=== PATIENT | female | born 1980 | race Caucasian/White ===

== ENCOUNTER → 2019-05-16 | Day surgery (SDC) | payer BC ==
[~2019-05-16] MED LIST: Acetaminophen TAB* 325 MG PO PRN; Buffered Lidocaine 1% SYRIN* 1 ML/SYRINGE INTRADERM ONE; Dexamethasone IV* 4 MG/ML 1 ML (4 MG) IV SLOW PU ONE; Dexamethasone IV* 4 MG/ML 1 ML (4 MG) ONE; DiMENhydriNATE IV* 50 MG/ML VIAL IV PUSH PRN; Famotidine IV* 10 MG/ML 2 ML (20 mg) IV ONE; Famotidine IV* 10 MG/ML 2 ML (20 mg) ONE; HYDROcodone/ACETAMIN 5-325 MG* 1 TAB PO PRN; Ketorolac INJ* 30 MG/ML 1 ML VIAL ONE; Lactated Ringers 1000 ML Bag* 1,000 ML IV SCH; Lidocaine 2% PF * 5 ML VIAL ONE; Midazolam* 1 MG/ML 5 ML VIAL (5 MG) ONE; Naloxone* 0.4 MG/ML 1 ML VIAL IV PRN; Ondansetron INJ* 2 MG/ML VIAL ONE; Phenylephrine 40 MCG/ML SYRINGE ONE; Propofol* 10 MG/ML 20 ML BTL ONE; Succinylcholine* 20 MG/ML 10 ML VIAL ONE; fentaNYL* 50 MCG/ML 2 ML VIAL (100 MCG VIAL) IV PRN; fentaNYL* 50 MCG/ML 2 ML VIAL (100 MCG VIAL) ONE; oxyCODONE TAB* 5 MG TAB PO PRN
[2019-05-16 15:49] VITALS: BP 116/69
--- NOTE | 2019-05-16 16:15 | OP ---
CC: [facility] OPERATIVE REPORT: DATE OF OPERATION: 05/16/19 DATE OF : 84 SURGEON: Marianne Villa MD ANESTHESIOLOGIST: Dr. Stover. ANESTHESIA: General endotracheal anesthesia. PRE-OP DIAGNOSES: Irregular heavy vaginal bleeding x6 months, thickened endometrium on ultrasound. Body mass index 64. POST-OP DIAGNOSES: Irregular heavy vaginal bleeding x6 months, thickened endometrium on ultrasound. OPERATIVE PROCEDURE: Dilation, hysteroscopy, MyoSure polypectomy, curettage, and insert Mirena IUD. ESTIMATED BLOOD LOSS: Less than 20 cc. SPECIMENS: Endometrial curettings, polypoid material. FLUIDS: Per Anesthesia. DRAINS: None. FINDINGS: Cervix was posterior. There was a large amount of polypoid tissue at the fundus. No adnexal masses palpated. The exam is limited by habitus. The uterus sounds to 8. The Mirena that was placed has an expiration of May 2021 which means it has to be placed before that time and it is due to be removed in 5 years. The lot number is [id number]. COUNTS: Sponge, lap, and needle count were correct x2. CONDITION: The patient tolerated the procedure well and was brought to recovery room, awake and in stable condition. DESCRIPTION OF PROCEDURE: The patient was brought to the operating room. When general anesthesia was found to be adequate, after the patient was prepped and draped in the usual sterile fashion, time-out was performed. Exam under anesthesia was performed with the above findings noted. Cervix was visualized with the side opening speculum. Cervix was grasped with a single-tooth tenaculum. The cervix was gently and easily dilated to a size 8 Cayla dilator. The uterus sounded to 8. The MyoSure was introduced with the above findings noted. There was a polypoid material at the fundus. This was removed with the MyoSure light. The endometrium appeared somewhat fluffy throughout. No fibroids were seen. The MyoSure was removed. The cervix was reprepped with Betadine and the Mirena was inserted. The Mirena strings were cut to approximately 4 cm. The single tooth tenaculum was removed. Excellent hemostasis was noted. All instruments were removed from the vagina and the patient was brought to the recovery room, awake and in stable condition. [id number]/[facility] #: [id number] [facility]
== END | disposition home or self-care (01) ==
LOC: OR 09:54
PROVIDERS: ATTEND Obstetrics & Gynecology
PROC: 0UDB8ZX Extraction of Endometrium, Via Natural or Artificial Opening Endoscopic, Diagnostic (ICD-10-PCS; principal; 2019-05-16 12:00)
DX: C54.1 Malignant neoplasm of endometrium (principal); N92.1 Excessive and frequent menstruation with irregular cycle; F32.9 Major depressive disorder, single episode, unspecified; E66.01 Morbid (severe) obesity due to excess calories; Z68.44 Body mass index [BMI] 60.0-69.9, adult; Z97.5 Presence of (intrauterine) contraceptive device
CPT/HCPCS: 81025; 88305; 88341; 88342; J0330; J1100; J1885; J2250; J2405; J2704; J3010; J7300

== ENCOUNTER 2020-03-02 07:30 | Inpatient (IN) ==
[2020-03-27] MEDS ORDERED: Buffered Lidocaine 1% SYRIN 1 ml INTRADERM ONE (06:00)
[2020-03-27] MEDS ORDERED: Lactated Ringers 1000 ml BAG 1,000 ML IV SCH (06:00)
[2020-03-27] MEDS ORDERED: Dexamethasone IV 4 MG/ML VIAL 1 ml VIAL IV SLOW PU ONE (06:00)
[2020-03-27] MEDS ORDERED: ceFAZolin 1 GM ADVAN 1 GM ADDV.VIAL IVPB ONE (11:44)
[2020-03-27] MEDS ORDERED: Heparin 5000 UNITS/ML 1 mL VIAL ONE (11:44)
[2020-03-27] MEDS ORDERED: Dexamethasone IV 4 MG/ML VIAL 1 ml VIAL ONE ×2 (11:44→12:01)
[2020-03-27] MEDS ORDERED: ceFAZolin 2 GM PREMIX 2 GM/50 ML BAG ONE (11:44)
[2020-03-27] MEDS ORDERED: Midazolam 2 mg/2 ml VIAL 1 mg/ml 2 ml VIAL (2 mg) ONE (12:00)
[2020-03-27] MEDS ORDERED: Propofol 10 MG/ML 20 ML BTL ONE (12:01)
[2020-03-27] MEDS ORDERED: Succinylcholine 200 mg VIAL 20 mg/ml 10 ml VIAL (200 mg) ONE (12:01)
[2020-03-27] MEDS ORDERED: Lidocaine 2% PF 5 ML VIAL ONE (12:01)
[2020-03-27] MEDS ORDERED: fentaNYL 250 mcg/5 ml 50 MCG/ML 5 ml VIAL (250 MCG) ONE (12:01)
[2020-03-27] MEDS ORDERED: Ondansetron 4 mg VIAL 2 MG/ML 2 ml VIAL ONE ×2 (12:01→16:18)
[2020-03-27] MEDS ORDERED: Bupivacaine 0.25% SDV 30 ML ONE (13:16)
[2020-03-27] MEDS ORDERED: Rocuronium 50 mg VIAL 10 mg/ml 5 ml VIAL (50 mg) ONE (13:35)
[2020-03-27] MEDS ORDERED: Metoprolol Tartrate 5 mg VIAL 5 ml VIAL (1 mg/ml) ONE (14:48)
[2020-03-27] MEDS ORDERED: fentaNYL 100 mcg/2 ml 50 MCG/ML VIAL ONE (15:44)
[2020-03-27] MEDS ORDERED: HYDROcodone/ACET. 7.5/325 LIQ 15 ML UDC PO PRN (15:52)
[2020-03-27] MEDS ORDERED: HYDROmorphone 0.5 MG/0.5 ML SYRINGE IV SLOW PU PRN (15:52)
[2020-03-27] MEDS ORDERED: fentaNYL 100 mcg/2 ml 50 MCG/ML VIAL IV PRN (16:17)
[2020-03-27] MEDS ORDERED: Ondansetron 4 mg VIAL 2 MG/ML 2 ml VIAL IV PRN (16:17)
[2020-03-27] MEDS ORDERED: diPHENhydraMINE IV 50 MG/ML 1 ml VIAL (BENADRYL) IV PRN (16:17)
[2020-03-27] MEDS ORDERED: Naloxone 0.4 mg VIAL 0.4 mg/ml 1 ml VIAL IV PRN (16:17)
[2020-03-27] MEDS ORDERED: HYDROmorphone 1 MG/1 ML SYRINGE ONE (16:18)
[2020-03-27] MEDS: HYDROmorphone 1 MG/1 ML SYRINGE IV PRN ×2 (16:20→16:30)
[2020-03-27] MEDS ORDERED: diPHENhydraMINE IV 50 MG/ML 1 ml VIAL (BENADRYL) ONE (16:35)
[2020-03-27] MEDS: Lactated Ringers 1000 ml BAG 1,000 ML IV SCH ×2 (17:33→23:59)
[2020-03-27] MEDS: Ondansetron 4 mg VIAL 2 MG/ML 2 ml VIAL IV PRN (21:29)
[2020-03-27] MEDS ORDERED: Heparin 5000 UNITS/ML 1 mL VIAL SUBCUT SCH (22:00)
[2020-03-27] MEDS: Heparin 5000 UNITS/ML 1 mL VIAL SUBCUT SCH (23:53)
[2020-03-28] MEDS ORDERED: Metoclopramide 5 MG/ML VIAL (10 mg) ONE (03:07)
[2020-03-28] MEDS ORDERED: Metoclopramide 5 MG/ML VIAL (10 mg) IV SLOW PU ONE (04:00)
[2020-03-28] MEDS: Ondansetron 4 mg VIAL 2 MG/ML 2 ml VIAL IV PRN (05:20)
[2020-03-28] MEDS: Heparin 5000 UNITS/ML 1 mL VIAL SUBCUT SCH ×2 (06:21→14:19)
[2020-03-28] MEDS: Lactated Ringers 1000 ml BAG 1,000 ML IV SCH ×2 (06:23→13:48)
[2020-03-28] MEDS ORDERED: Pantoprazole VIAL 40 MG VIAL IV SCH (08:00)
[2020-03-28 16:00] VITALS: BP 129/70
[2020-03-28] MEDS ORDERED: D5W 1/2 NS KCl 20 meq 1000 ml 1,000 ML IV SCH (16:00)
[2020-03-30] MEDS ORDERED: Scopolamine PATCH Remove NOTE PATCH OFF ONE (06:00)
== END 2020-03-28 16:40 | disposition home or self-care (01) | DRG 403 ==
LOC: AA 03-27 11:30 → SSU 03-27 15:52
PROVIDERS: ADMIT Surgery; ATTEND Surgery